=== PATIENT | male | born 1930 | race Caucasian/White ===

== ENCOUNTER 2016-06-16 14:31 | Inpatient (IN) | payer MEDICARE, OTHER ==
[~2016-06-16] VITALS: Ht 172.7 cm; Wt 78.2 kg
[~2016-06-16 14:31] MED LIST: ACET325T14 PO; ALBU18HF INH; ALBU8.5H3 INH; APIX5TAB PO; CEFU500T50 PO; CHOL10003 PO; DOXY100C2 PO; GUAI1CAP19 PO; HYDR-3241 PO; HYDR1TAB14 PO; IRON PO; MECL12.52 PO; METO25TA91 PO; OMEP-110 PO; TAMS0.4C2 PO; VITAMIN B12 PO
[2016-06-16] MEDS ORDERED: AMIO200T42 PO (15:06)
[2016-06-16] MEDS ORDERED: SODIUM CHLORIDE FLUSH 10ML SYR IVF ONE (15:30)
[2016-06-16] MEDS ORDERED: ALBUTEROL/IPRATROPIUM 2.5MG/0.5MG, 3 ML NPPB ONE (15:30)
[2016-06-16] MEDS ORDERED: ALBUTEROL/IPRATROPIUM 2.5MG/0.5MG, 3 ML ONE (15:36)
[2016-06-16 15:44] LABS: BLOOD UREA NITROGEN 15 mg/dL (7-18)
[2016-06-16 15:49] LABS: IS PT STATUS REG ER OR PRE ER? YES
[2016-06-16] MEDS ORDERED: OMNIPAQUE 350 MG/ML, 100ML BOTTLE ONE (17:38)
[2016-06-16] MEDS ORDERED: CEFTRIAXONE PMX 1GM/50ML 50 ML ONE (18:04)
[2016-06-16] MEDS ORDERED: CEFTRIAXONE PMX 1GM/50ML 50 ML IVPB ONE (18:30)
[2016-06-16] MEDS ORDERED: AZITHROMYCIN 500 MG in SODIUM CHLORIDE 0.9% 250 ML IV ONE (18:30)
[2016-06-16] MEDS ORDERED: SODIUM CHLORIDE FLUSH 10ML SYR IVF PRN (19:00)
[2016-06-16] MEDS ORDERED: SODIUM CHLORIDE 0.9% 1,000 ML IV SCH (19:18)
[2016-06-16] MEDS ORDERED: GUAIFENESIN/DM 200-20MG, 10ML UDC PO PRN (19:30)
[2016-06-16] MEDS ORDERED: DOCUSATE 100 MG CAPSULE PO PRN (19:30)
[2016-06-16] MEDS ORDERED: ONDANSETRON 2MG/ML, 2ML IVP PRN (19:30)
[2016-06-16] MEDS ORDERED: BISACODYL 10 MG SUPP PR PRN (19:30)
[2016-06-16] MEDS ORDERED: ACETAMINOPHEN 325 MG TABLET PO PRN (19:30)
[2016-06-16] MEDS ORDERED: HYDROcodone/APAP 5/325 TABLET PO PRN (19:30)
[2016-06-16] MEDS ORDERED: CEFTRIAXONE PMX 1GM/50ML 50 ML IV SCH (19:30)
[2016-06-16] MEDS ORDERED: POLYETHYLENE GLYCOL 17 GM PACKET PO PRN (19:30)
[2016-06-16 20:04] LABS: IS PT STATUS REG ER OR PRE ER? YES
[2016-06-16] MEDS ORDERED: TAMSULOSIN 0.4 MG CAP.ER.24H PO SCH (21:00)
[2016-06-16 21:20] VITALS: BP 164/78
[2016-06-16] MEDS: DOXYCYCLINE 100 MG in DEXTROSE 5% 250 ML IV SCH (21:47)
[2016-06-16] MEDS: APIXABAN 5 MG TABLET PO SCH (23:03)
[2016-06-16] MEDS: LACTOBACILLUS CHEW TABLET PO SCH (23:04)
[2016-06-16] MEDS: POTASSIUM CHLORIDE 20 MEQ TAB.ER.PRT PO SCH (23:04)
[2016-06-16] MEDS: TAMSULOSIN 0.4 MG CAP.ER.24H PO SCH (23:58)
[2016-06-17 00:07] VITALS: BP 164/78
[2016-06-17 03:03] LABS: IS PT STATUS REG ER OR PRE ER? NO
[2016-06-17 03:06] LABS: BLOOD UREA NITROGEN 13 mg/dL (7-18)
[2016-06-17 03:09] LABS: ASPARTATE AMINO TRANSFERASE 11 U/L (15-37)
[2016-06-17 03:55] VITALS: BP 157/71
[2016-06-17] MEDS: POTASSIUM CHLORIDE 20 MEQ TAB.ER.PRT PO SCH (04:06)
[2016-06-17 07:50] VITALS: BP 160/76
[2016-06-17] MEDS: AMIODARONE 200 MG TABLET PO SCH (08:43)
[2016-06-17] MEDS: LACTOBACILLUS CHEW TABLET PO SCH ×3 (08:43→22:41)
[2016-06-17] MEDS: APIXABAN 5 MG TABLET PO SCH ×2 (08:43→22:41)
[2016-06-17] MEDS: DOXYCYCLINE 100 MG in DEXTROSE 5% 250 ML IV SCH ×2 (11:19→22:42)
[2016-06-17 12:39] VITALS: BP 157/78
[2016-06-17] MEDS ORDERED: CEFTRIAXONE PMX 1GM/50ML 50 ML IV SCH (18:00)
[2016-06-17] MEDS ORDERED: CEFTRIAXONE PMX 1GM/50ML 50 ML IVPB ONE (18:00)
[2016-06-17] MEDS: TAMSULOSIN 0.4 MG CAP.ER.24H PO SCH (18:36)
[2016-06-17 20:50] VITALS: BP 147/69
[2016-06-18] MEDS ORDERED: ZOLPIDEM 5MG TABLET PO ONE (01:30)
[2016-06-18 02:18] VITALS: BP 175/84
[2016-06-18 05:28] LABS: BLOOD UREA NITROGEN 8 mg/dL (7-18)
[2016-06-18 07:39] VITALS: BP 127/76
[2016-06-18] MEDS: AMIODARONE 200 MG TABLET PO SCH (09:35)
[2016-06-18] MEDS: APIXABAN 5 MG TABLET PO SCH ×2 (09:36→20:50)
[2016-06-18] MEDS: LACTOBACILLUS CHEW TABLET PO SCH ×3 (09:37→20:50)
[2016-06-18] MEDS: DOXYCYCLINE 100 MG in DEXTROSE 5% 250 ML IV SCH ×2 (11:57→23:33)
[2016-06-18 12:53] VITALS: BP 152/81
[2016-06-18] MEDS: TAMSULOSIN 0.4 MG CAP.ER.24H PO SCH (18:36)
[2016-06-18] MEDS: CEFTRIAXONE PMX 1GM/50ML 50 ML IV SCH (18:36)
[2016-06-18 18:45] VITALS: BP 162/82
[2016-06-19 01:26] VITALS: BP 157/75
[2016-06-19] MEDS: CEFTRIAXONE PMX 1GM/50ML 50 ML IV SCH (05:06)
[2016-06-19 06:52] VITALS: BP 152/76
[2016-06-19] MEDS ORDERED: CEFD300C37 PO (09:32)
[2016-06-19] MEDS ORDERED: DOXY100C2 PO (09:32)
[2016-06-19] MEDS: AMIODARONE 200 MG TABLET PO SCH (09:37)
[2016-06-19] MEDS: LACTOBACILLUS CHEW TABLET PO SCH (09:37)
[2016-06-19] MEDS: APIXABAN 5 MG TABLET PO SCH (09:37)
== END 2016-06-19 11:00 | disposition home or self-care (01) | DRG 193 ==
LOC: ED 16:37 → EDIP 18:32 → SUATTDRO 18:55 → 4EST 21:11 → DCLOUNGE 06-19 10:50
PROVIDERS: ADMIT Internal Medicine
DX: J18.9 Pneumonia, unspecified organism (principal); E43 Unspecified severe protein-calorie malnutrition; J96.01 Acute respiratory failure with hypoxia; M48.56XA Collapsed vertebra, not elsewhere classified, lumbar region, initial encounter for fracture; D68.59 Other primary thrombophilia; D50.9 Iron deficiency anemia, unspecified; E87.6 Hypokalemia; G89.29 Other chronic pain; H91.90 Unspecified hearing loss, unspecified ear; I48.2 Chronic atrial fibrillation; K21.9 Gastro-esophageal reflux disease without esophagitis; N40.0 Benign prostatic hyperplasia without lower urinary tract symptoms; Z80.0 Family history of malignant neoplasm of digestive organs; Z82.0 Family history of epilepsy and other diseases of the nervous system; Z82.3 Family history of stroke; Z85.828 Personal history of other malignant neoplasm of skin; Z87.891 Personal history of nicotine dependence; Z95.0 Presence of cardiac pacemaker; Z79.01 Long term (current) use of anticoagulants; Z88.7 Allergy status to serum and vaccine; Z91.018 Allergy to other foods; Z60.2 Problems related to living alone
CPT/HCPCS: 36415; 71010; 71275; 80048; 80053; 82040; 83735; 83880; 84484; 85025; 85610; 85730; 87040; 87070; 87205; 87324; 93005; 94640; 96365; 96366; J0456; J0696; J7060; J7620; Q9967; J7030; J7050

== ENCOUNTER → 2016-07-06 | Outpatient (CLI) | payer MEDICARE, OTHER ==
[~2016-07-06] MED LIST changes: +AMIO200T42 PO; +CEFD300C37 PO
== END | disposition home or self-care (01) ==
LOC: CFH 12:56
PROVIDERS: ATTEND Internal Medicine Cardiovascular Disease
DX: J18.9 Pneumonia, unspecified organism (principal)
CPT/HCPCS: 71020

== ENCOUNTER → 2017-06-05 | Outpatient (CLI) | payer MEDICARE, OTHER ==
[~2017-06-05] MED LIST changes: -ALBU8.5H3 INH; +ALBU8.5H8 INH; +SULF1TAB24 PO
[2017-06-05 13:07] LABS: CHLORIDE 107 mmol/L (98-107)
[2017-06-05 13:14] LABS: ALANINE AMINOTRANSFERASE 23 U/L (12-78); ALBUMIN 2.9 g/dL (3.4-5.0); ALKALINE PHOSPHATASE 57 U/L (45-117); ANION GAP 9 mmol/L (5-15); BILIRUBIN,TOTAL 0.6 mg/dL (0.2-1.0); CALCIUM 8.2 mg/dL (8.5-10.1); CHOL/HDL RATIO 2.1; CHOLESTEROL, TOTAL 179 mg/dL (140-239); CREATININE 0.79 mg/dL (0.7-1.3); HDL CHOL % 47 % (26-37); HDL CHOLESTEROL (DIRECT) 85 mg/dL (40-60); LDL CHOLESTEROL,CALCULATED 80 mg/dL (54-169); LDL/HDL RATIO 0.9 (0.5-3.0); TOTAL PROTEIN 5.8 g/dL (6.4-8.2); TRIGLYCERIDES 70 mg/dL (50-200); VLDL CHOLESTEROL 14 mg/dL (0-25)
== END | disposition home or self-care (01) ==
LOC: CFH 08:23
PROVIDERS: ATTEND Internal Medicine Cardiovascular Disease
DX: R06.02 Shortness of breath (principal); E78.2 Mixed hyperlipidemia; I25.10 Atherosclerotic heart disease of native coronary artery without angina pectoris; I48.91 Unspecified atrial fibrillation; I73.9 Peripheral vascular disease, unspecified; R60.9 Edema, unspecified; Z95.0 Presence of cardiac pacemaker
CPT/HCPCS: 36415; 71046; 80053; 80061

== ENCOUNTER 2017-07-13 15:45 | Inpatient (IN) | payer MEDICARE, OTHER ==
[~2017-07-13] VITALS: Ht 172.7 cm; Wt 83.8 kg
[2017-07-13] MEDS ORDERED: SODIUM CHLORIDE FLUSH 10ML SYR IVF ONE (16:30)
[2017-07-13] MEDS ORDERED: SODIUM CHLORIDE 0.9% 1,000ML IVBOLUS ONE (16:30)
[2017-07-13] MEDS ORDERED: ONDANSETRON 2MG/ML, 2ML IVPush ONE (16:30)
[2017-07-13 16:55] LABS: BASOPHILS # (AUTO) 0.02 x10^3/uL (0-0.1); BASOPHILS % (AUTO) 0 % (0-1); EOSINOPHILS # (AUTO) 0.05 x10^3/uL (0-0.4); EOSINOPHILS % (AUTO) 1 % (1-7); LYMPHOCYTES # (AUTO) 1.83 x10^3/uL (1-3.4); LYMPHOCYTES % (AUTO) 27 % (22-44); MD NO; MEAN CORPUSCULAR HEMOGLOBIN 31.4 pg (27.5-34.5); MEAN CORPUSCULAR HGB CONC 33.2 g/dL (33.2-36.2); MEAN CORPUSCULAR VOLUME 94.4 fL (81-97); MEAN PLATELET VOLUME 8.2 fL (7.4-10.4); MONOCYTES # (AUTO) 0.63 x10^3/uL (0.2-0.8); MONOCYTES % (AUTO) 9 % (2-9); NEUTROPHILS # (AUTO) 4.39 x10^3/uL (1.8-6.8); NEUTROPHILS % (AUTO) 63 % (42-75); PLATELET COUNT 220 x10^3/uL (130-400); RED BLOOD COUNT 4.97 x10^6/uL (4.38-5.82); RED CELL DISTRIBUTION WIDTH 15.2 % (9.4-14.8)
[2017-07-13 17:05] LABS: ALBUMIN 3.3 g/dL (3.4-5.0); ANION GAP 6 mmol/L (5-15); CALCIUM 8.5 mg/dL (8.5-10.1); CHLORIDE 107 mmol/L (98-107)
[2017-07-13] MEDS ORDERED: ONDANSETRON 2MG/ML, 2ML ONE (17:05)
[2017-07-13] MEDS ORDERED: HYDROmorphone 2 MG/ML, 1ML ONE ×2 (17:06→18:12)
[2017-07-13 17:08] LABS: ALANINE AMINOTRANSFERASE 23 U/L (12-78); ALKALINE PHOSPHATASE 71 U/L (45-117); BILIRUBIN,TOTAL 0.6 mg/dL (0.2-1.0); CREATININE 0.82 mg/dL (0.7-1.3); TOTAL PROTEIN 6.7 g/dL (6.4-8.2)
[2017-07-13] MEDS: HYDROmorphone 1 MG/ML, 1ML IVPush PRN ×2 (17:28→20:38)
[2017-07-13] MEDS ORDERED: OMNIPAQUE 350 MG/ML, 100ML BOTTLE ONE (17:54)
[2017-07-13] MEDS ORDERED: methylPREDNISolone SOD SUCC 125 MG/2 ML ONE (19:58)
[2017-07-13] MEDS ORDERED: methylPREDNISolone SOD SUCC 125 MG/2 ML IVPush ONE (20:00)
[2017-07-13] MEDS ORDERED: hydrALAzine 20 MG/ML, 1ML IVPush PRN (20:30)
[2017-07-13] MEDS ORDERED: BISACODYL 10 MG SUPP PR PRN (20:30)
[2017-07-13] MEDS ORDERED: ACETAMINOPHEN 325 MG TABLET PO PRN (20:30)
[2017-07-13] MEDS ORDERED: DOCUSATE 100 MG CAPSULE PO PRN (20:30)
[2017-07-13] MEDS ORDERED: ONDANSETRON 2MG/ML, 2ML IVPush PRN (20:30)
[2017-07-13] MEDS ORDERED: BACLOFEN 10 MG TABLET PO PRN (20:30)
[2017-07-13] MEDS ORDERED: POLYETHYLENE GLYCOL 17 GM PACKET PO PRN (20:30)
[2017-07-13 21:49] VITALS: BP 173/90
[2017-07-13] MEDS: TAMSULOSIN 0.4 MG CAP.ER.24H PO SCH (21:59)
[2017-07-13] MEDS: SODIUM CHLORIDE FLUSH 10ML SYR IVF SCH (21:59)
[2017-07-13] MEDS: APIXABAN 5 MG TABLET PO SCH (21:59)
[2017-07-13] MEDS: morphine SULFATE 10 MG/ML, 1ML IVPush PRN (23:15)
[2017-07-13 23:22] VITALS: BP 136/71
[2017-07-14 02:23] VITALS: BP 151/71
[2017-07-14] MEDS: morphine SULFATE 10 MG/ML, 1ML IVPush PRN ×5 (02:33→21:18)
[2017-07-14 07:00] VITALS: BP 148/80
[2017-07-14] MEDS: SODIUM CHLORIDE FLUSH 10ML SYR IVF SCH ×2 (08:16→21:17)
[2017-07-14] MEDS: APIXABAN 5 MG TABLET PO SCH ×2 (08:19→21:18)
[2017-07-14] MEDS: AMIODARONE 200 MG TABLET PO SCH (08:19)
[2017-07-14] MEDS: FERROUS SULFATE 325 MG TABLET PO SCH (08:19)
[2017-07-14] MEDS: CYANOCOBALAMIN 1,000 MCG TABLET PO SCH (08:20)
[2017-07-14] MEDS: CHOLECALCIFEROL 1,000 UNIT TABLET PO SCH (08:20)
[2017-07-14] MEDS: TAMSULOSIN 0.4 MG CAP.ER.24H PO SCH ×2 (08:20→21:18)
[2017-07-14] MEDS: BACLOFEN 10 MG TABLET PO SCH ×3 (08:20→21:18)
[2017-07-14 12:24] VITALS: BP 124/69
[2017-07-14 19:51] VITALS: BP 136/66
[2017-07-14] MEDS: KETOROLAC 30 MG/1 ML IVPush PRN (21:18)
[2017-07-15] MEDS: morphine SULFATE 10 MG/ML, 1ML IVPush PRN ×2 (00:34→04:16)
[2017-07-15 02:14] VITALS: BP 148/84
[2017-07-15] MEDS: KETOROLAC 30 MG/1 ML IVPush PRN (04:16)
[2017-07-15 06:35] VITALS: BP 143/78
[2017-07-15] MEDS: FERROUS SULFATE 325 MG TABLET PO SCH (08:35)
[2017-07-15] MEDS: CYANOCOBALAMIN 1,000 MCG TABLET PO SCH (08:35)
[2017-07-15] MEDS: TAMSULOSIN 0.4 MG CAP.ER.24H PO SCH (08:36)
[2017-07-15] MEDS: APIXABAN 5 MG TABLET PO SCH (08:36)
[2017-07-15] MEDS: BACLOFEN 10 MG TABLET PO SCH (08:36)
[2017-07-15] MEDS: CHOLECALCIFEROL 1,000 UNIT TABLET PO SCH (08:36)
[2017-07-15] MEDS: AMIODARONE 200 MG TABLET PO SCH (08:36)
[2017-07-15] MEDS ORDERED: METH4TAB PO (09:00)
[2017-07-15] MEDS ORDERED: BACL-19 PO (09:03)
== END 2017-07-15 11:05 | disposition home or self-care (01) | DRG 552 ==
LOC: ED 17:55 → EDIP 20:09 → 3NW 20:58 → DCLOUNGE 07-15 11:01
PROVIDERS: ADMIT Family Medicine; ATTEND Hospitalist
DX: M54.16 Radiculopathy, lumbar region (principal); E44.0 Moderate protein-calorie malnutrition; D68.69 Other thrombophilia; R26.2 Difficulty in walking, not elsewhere classified; G89.29 Other chronic pain; I25.10 Atherosclerotic heart disease of native coronary artery without angina pectoris; K21.9 Gastro-esophageal reflux disease without esophagitis; M54.40 Lumbago with sciatica, unspecified side; N40.0 Benign prostatic hyperplasia without lower urinary tract symptoms; R32 Unspecified urinary incontinence; Z79.01 Long term (current) use of anticoagulants; Z82.49 Family history of ischemic heart disease and other diseases of the circulatory system; Z83.3 Family history of diabetes mellitus; Z85.828 Personal history of other malignant neoplasm of skin; Z87.891 Personal history of nicotine dependence; Z95.0 Presence of cardiac pacemaker; Z68.28 Body mass index [BMI] 28.0-28.9, adult; Z88.8 Allergy status to other drugs, medicaments and biological substances; Z91.018 Allergy to other foods; M54.9 Dorsalgia, unspecified; M48.061 Spinal stenosis, lumbar region without neurogenic claudication
CPT/HCPCS: 36415; 72133; 80053; 85025; 96374; 96375; 96376; J1170; J1885; J2405; J7509; Q9967; J2270; J2930; J7030

== ENCOUNTER 2017-07-24 01:28 | Inpatient (IN) | payer MEDICARE, OTHER ==
[~2017-07-24] VITALS: Ht 172.7 cm; Wt 80.2 kg
[~2017-07-24 01:28] MED LIST changes: +BACL-19 PO; +METH4TAB PO
[2017-07-24] MEDS ORDERED: MORPHINE SULFATE 4 MG/ML, 1ML IVPush PRN (02:00)
[2017-07-24] MEDS ORDERED: SODIUM CHLORIDE FLUSH 10ML SYR IVF ONE (02:00)
[2017-07-24] MEDS ORDERED: ASPIRIN 81 MG TABLET CHEW PO ONE (02:00)
[2017-07-24] MEDS ORDERED: ASPIRIN 81 MG TABLET CHEW ONE (02:01)
[2017-07-24] MEDS ORDERED: MORPHINE SULFATE 4 MG/ML, 1ML ONE ×2 (02:01→02:27)
[2017-07-24] MEDS ORDERED: GABA300C10 PO (02:07)
[2017-07-24 02:09] LABS: BASOPHILS # (AUTO) 0.03 x10^3/uL (0-0.1); BASOPHILS % (AUTO) 0 % (0-1); EOSINOPHILS # (AUTO) 0.05 x10^3/uL (0-0.4); EOSINOPHILS % (AUTO) 1 % (1-7); LYMPHOCYTES # (AUTO) 2.04 x10^3/uL (1-3.4); LYMPHOCYTES % (AUTO) 27 % (22-44); MD NO; MEAN CORPUSCULAR HEMOGLOBIN 31.5 pg (27.5-34.5); MEAN CORPUSCULAR VOLUME 95.5 fL (81-97); MONOCYTES # (AUTO) 0.78 x10^3/uL (0.2-0.8); MONOCYTES % (AUTO) 10 % (2-9); NEUTROPHILS # (AUTO) 4.78 x10^3/uL (1.8-6.8); NEUTROPHILS % (AUTO) 62 % (42-75); PLATELET COUNT 225 x10^3/uL (130-400); RED BLOOD COUNT 4.24 x10^6/uL (4.38-5.82); RED CELL DISTRIBUTION WIDTH 14.5 % (9.4-14.8)
[2017-07-24 02:17] LABS: INTERNATIONAL NORMALIZED RATIO 0.97 (0.93-1.1)
[2017-07-24 02:21] LABS: ALANINE AMINOTRANSFERASE 22 U/L (12-78); ALBUMIN 2.9 g/dL (3.4-5.0); ANION GAP 8 mmol/L (5-15); CALCIUM 8.1 mg/dL (8.5-10.1); CHLORIDE 106 mmol/L (98-107)
[2017-07-24 02:25] LABS: ALKALINE PHOSPHATASE 67 U/L (45-117); BILIRUBIN,TOTAL 0.2 mg/dL (0.2-1.0); TOTAL PROTEIN 6.1 g/dL (6.4-8.2); TROPONIN I < 0.015 ng/mL (0.000-0.045)
[2017-07-24 05:27] VITALS: BP 147/71
[2017-07-24] MEDS ORDERED: NITROGLYCERIN 0.4 MG BOTTLE (25 TABS) SL PRN (06:00)
[2017-07-24] MEDS ORDERED: NITROGLYCERIN 0.4 MG/SPRAY SL PRN (06:00)
[2017-07-24 06:10] VITALS: BP 101/58
[2017-07-24] MEDS ORDERED: SODIUM CHLORIDE 0.9% 1,000 ML IV SCH (06:20)
[2017-07-24] MEDS ORDERED: DOCUSATE 100 MG CAPSULE PO PRN (06:30)
[2017-07-24] MEDS ORDERED: BISACODYL 10 MG SUPP PR PRN (06:30)
[2017-07-24] MEDS ORDERED: ONDANSETRON 2MG/ML, 2ML IVPush PRN (06:30)
[2017-07-24] MEDS ORDERED: ACETAMINOPHEN 325 MG TABLET PO PRN (06:30)
[2017-07-24] MEDS ORDERED: hydrALAzine 20 MG/ML, 1ML IVPush PRN (06:30)
[2017-07-24] MEDS ORDERED: morphine SULFATE 10 MG/ML, 1ML IVPush PRN (06:30)
[2017-07-24] MEDS ORDERED: ONDANSETRON ODT 4 MG PO PRN (06:30)
[2017-07-24] MEDS ORDERED: POLYETHYLENE GLYCOL 17 GM PACKET PO PRN (06:30)
[2017-07-24] MEDS ORDERED: BACLOFEN 10 MG TABLET PO PRN (07:00)
[2017-07-24 07:46] LABS: FREE T4 (FREE THYROXINE) 1.62 ng/dL (0.76-1.46); THYROID STIMULATING HORMONE 2.16 mIU/L (0.358-3.740)
[2017-07-24 08:32] LABS: HEMOGLOBIN A1C 5.4 % (4.2-6.3)
[2017-07-24 08:34] VITALS: BP 123/67
[2017-07-24] MEDS: TAMSULOSIN 0.4 MG CAP.ER.24H PO SCH ×3 (09:00→10:28)
[2017-07-24 09:16] LABS: TROPONIN I < 0.015 ng/mL (0.000-0.045)
[2017-07-24] MEDS: GABAPENTIN 300 MG CAPSULE PO SCH ×4 (09:49→20:50)
[2017-07-24] MEDS: OMEPRAZOLE 20 MG CAPSULE.DR PO SCH (09:49)
[2017-07-24] MEDS: AMIODARONE 200 MG TABLET PO SCH (09:49)
[2017-07-24] MEDS: FERROUS SULFATE 325 MG TABLET PO SCH (09:49)
[2017-07-24] MEDS: CHOLECALCIFEROL 1,000 UNIT TABLET PO SCH (09:50)
[2017-07-24] MEDS: CYANOCOBALAMIN 1,000 MCG TABLET PO SCH (09:50)
[2017-07-24] MEDS: APIXABAN 5 MG TABLET PO SCH ×2 (09:52→20:50)
[2017-07-24] MEDS: OXYcodone IR 5MG TABLET PO PRN (10:10)
[2017-07-24 10:14] VITALS: BP 134/78
[2017-07-24] MEDS ORDERED: REGADENOSON 0.4 MG/5 ML SYRINGE ONE (11:06)
[2017-07-24] MEDS ORDERED: KETOROLAC 30 MG/1 ML IVPush ONE (13:00)
[2017-07-24 13:14] VITALS: BP 91/62
[2017-07-24] MEDS: METHOCARBAMOL 500 MG TABLET PO SCH ×3 (13:17→20:50)
[2017-07-24] MEDS ORDERED: OMNIPAQUE 350 MG/ML, 100ML BOTTLE ONE (14:08)
[2017-07-24 15:25] LABS: TROPONIN I < 0.015 ng/mL (0.000-0.045)
[2017-07-24] MEDS ORDERED: KETOROLAC 30 MG/1 ML IVPush PRN (15:30)
[2017-07-24 20:18] VITALS: BP 128/71
[2017-07-25 02:00] VITALS: BP 169/82
[2017-07-25] MEDS: OXYcodone IR 5MG TABLET PO PRN ×3 (02:38→10:36)
[2017-07-25] MEDS: METHOCARBAMOL 500 MG TABLET PO SCH ×2 (05:03→10:36)
[2017-07-25] MEDS: GABAPENTIN 300 MG CAPSULE PO SCH ×2 (05:03→10:36)
[2017-07-25 05:40] LABS: ALBUMIN 2.5 g/dL (3.4-5.0); ANION GAP 6 mmol/L (5-15); CALCIUM 7.7 mg/dL (8.5-10.1); CHLORIDE 108 mmol/L (98-107)
[2017-07-25 05:43] LABS: ALANINE AMINOTRANSFERASE 19 U/L (12-78); ALKALINE PHOSPHATASE 62 U/L (45-117); BILIRUBIN,TOTAL 0.4 mg/dL (0.2-1.0); CHOL/HDL RATIO 2.2; CHOLESTEROL, TOTAL 137 mg/dL (140-239); HDL CHOL % 45 % (26-37); HDL CHOLESTEROL (DIRECT) 61 mg/dL (40-60); LDL CHOLESTEROL,CALCULATED 62 mg/dL (54-169); TOTAL PROTEIN 5.4 g/dL (6.4-8.2); TRIGLYCERIDES 70 mg/dL (50-200); VLDL CHOLESTEROL 14 mg/dL (0-25)
[2017-07-25] MEDS ORDERED: ASPIRIN 81 MG TABLET EC PO SCH (06:00)
[2017-07-25 06:45] LABS: BASOPHILS # (AUTO) 0.02 x10^3/uL (0-0.1); BASOPHILS % (AUTO) 0 % (0-1); EOSINOPHILS # (AUTO) 0.07 x10^3/uL (0-0.4); EOSINOPHILS % (AUTO) 1 % (1-7); LYMPHOCYTES # (AUTO) 1.19 x10^3/uL (1-3.4); LYMPHOCYTES % (AUTO) 17 % (22-44); MD NO; MEAN CORPUSCULAR HEMOGLOBIN 31.1 pg (27.5-34.5); MEAN CORPUSCULAR HGB CONC 32.7 g/dL (33.2-36.2); MEAN PLATELET VOLUME 8.5 fL (7.4-10.4); MONOCYTES # (AUTO) 0.72 x10^3/uL (0.2-0.8); MONOCYTES % (AUTO) 10 % (2-9); NEUTROPHILS # (AUTO) 5.01 x10^3/uL (1.8-6.8); NEUTROPHILS % (AUTO) 72 % (42-75); PLATELET COUNT 200 x10^3/uL (130-400); RED BLOOD COUNT 4.02 x10^6/uL (4.38-5.82); RED CELL DISTRIBUTION WIDTH 14.5 % (9.4-14.8)
[2017-07-25 07:05] VITALS: BP 118/71
[2017-07-25] MEDS: OMEPRAZOLE 20 MG CAPSULE.DR PO SCH (08:42)
[2017-07-25] MEDS: CYANOCOBALAMIN 1,000 MCG TABLET PO SCH (08:42)
[2017-07-25] MEDS: APIXABAN 5 MG TABLET PO SCH (08:42)
[2017-07-25] MEDS: CHOLECALCIFEROL 1,000 UNIT TABLET PO SCH (08:42)
[2017-07-25] MEDS: TAMSULOSIN 0.4 MG CAP.ER.24H PO SCH (08:42)
[2017-07-25] MEDS: FERROUS SULFATE 325 MG TABLET PO SCH (08:42)
[2017-07-25] MEDS: AMIODARONE 200 MG TABLET PO SCH (08:42)
== END 2017-07-25 12:20 | disposition home or self-care (01) | DRG 205 ==
LOC: ED 01:57 → EDIP 04:48 → 5SO 05:29 → DCLOUNGE 07-25 12:13
PROVIDERS: ADMIT Internal Medicine; ATTEND Internal Medicine
DX: M94.0 Chondrocostal junction syndrome [Tietze] (principal); E43 Unspecified severe protein-calorie malnutrition; D68.59 Other primary thrombophilia; I48.2 Chronic atrial fibrillation; Z82.49 Family history of ischemic heart disease and other diseases of the circulatory system; M19.90 Unspecified osteoarthritis, unspecified site; N40.0 Benign prostatic hyperplasia without lower urinary tract symptoms; M54.9 Dorsalgia, unspecified; G89.29 Other chronic pain; K21.9 Gastro-esophageal reflux disease without esophagitis; M47.9 Spondylosis, unspecified; M54.10 Radiculopathy, site unspecified; Z79.82 Long term (current) use of aspirin; Z85.828 Personal history of other malignant neoplasm of skin; Z83.3 Family history of diabetes mellitus; Z87.891 Personal history of nicotine dependence; Z95.0 Presence of cardiac pacemaker; Z79.01 Long term (current) use of anticoagulants; Z87.01 Personal history of pneumonia (recurrent)
CPT/HCPCS: 36415; 71045; 71275; 78452; 80053; 80061; 83036; 83690; 83735; 83880; 84145; 84439; 84443; 84484; 85025; 85379; 85610; 85730; 93005; 93017; 93306; 96374; J1885; J2785; Q9967; A9502; C9898; J0360; J7030

== ENCOUNTER → 2017-12-31 | Outpatient (CLI) | payer MEDICARE, OTHER ==
[~2017-12-31] MED LIST changes: +GABA300C10 PO
[2017-12-31 13:38] LABS: BASOPHILS # (AUTO) 0.02 x10^3/uL (0-0.1); BASOPHILS % (AUTO) 0 % (0-1); EOSINOPHILS # (AUTO) 0.03 x10^3/uL (0-0.4); EOSINOPHILS % (AUTO) 1 % (1-7); LYMPHOCYTES # (AUTO) 1.68 x10^3/uL (1-3.4); LYMPHOCYTES % (AUTO) 28 % (22-44); MD NO; MEAN CORPUSCULAR HEMOGLOBIN 29.6 pg (27.5-34.5); MEAN CORPUSCULAR HGB CONC 33.1 g/dL (33.2-36.2); MEAN CORPUSCULAR VOLUME 89.4 fL (81-97); MEAN PLATELET VOLUME 8.7 fL (7.4-10.4); MONOCYTES % (AUTO) 8 % (2-9); NEUTROPHILS # (AUTO) 3.69 x10^3/uL (1.8-6.8); NEUTROPHILS % (AUTO) 62 % (42-75); PLATELET COUNT 190 x10^3/uL (130-400); RED BLOOD COUNT 4.36 x10^6/uL (4.38-5.82); RED CELL DISTRIBUTION WIDTH 17.6 % (9.4-14.8)
[2017-12-31 13:45] LABS: ALBUMIN 3.1 g/dL (3.4-5.0); ANION GAP 6 mmol/L (5-15); CALCIUM 8.2 mg/dL (8.5-10.1); CHLORIDE 109 mmol/L (98-107)
[2017-12-31 13:58] LABS: ALANINE AMINOTRANSFERASE 22 U/L (12-78); ALKALINE PHOSPHATASE 74 U/L (45-117); BILIRUBIN,TOTAL 0.3 mg/dL (0.2-1.0); CHOL/HDL RATIO 2.7; CHOLESTEROL, TOTAL 171 mg/dL (140-239); CREATININE 0.73 mg/dL (0.7-1.3); HDL CHOL % 37 % (26-37); HDL CHOLESTEROL (DIRECT) 64 mg/dL (40-60); LDL CHOLESTEROL,CALCULATED 90 mg/dL (54-169); LDL/HDL RATIO 1.4 (0.5-3.0); T4 (THYROXINE) 9.9 mcg/dL (4.5-12.1); TOTAL PROTEIN 6.1 g/dL (6.4-8.2); TRIGLYCERIDES 85 mg/dL (50-200); VLDL CHOLESTEROL 17 mg/dL (0-25)
== END | disposition home or self-care (01) ==
LOC: LAB 10:44
PROVIDERS: ATTEND Internal Medicine Cardiovascular Disease
DX: M48.54XG Collapsed vertebra, not elsewhere classified, thoracic region, subsequent encounter for fracture with delayed healing (principal); R06.02 Shortness of breath; I48.91 Unspecified atrial fibrillation; Z95.0 Presence of cardiac pacemaker; Z79.899 Other long term (current) drug therapy
CPT/HCPCS: 36415; 71046; 80053; 80061; 84436; 84443; 84481; 85025

== ENCOUNTER 2018-05-22 18:15 | Emergency (ER) | payer MEDICARE, OTHER ==
[~2018-05-22] VITALS: Ht 172.7 cm; Wt 82.8 kg
--- NOTE | 2018-05-22 18:25 | NUR ---
PT AMBULATORY TO XRAY.
--- NOTE | 2018-05-22 18:53 | NUR ---
ERP IN TO ASSESS
[2018-05-22] MEDS ORDERED: KETOROLAC 30 MG/1 ML ONE (19:24)
[2018-05-22] MEDS ORDERED: DIAZEPAM 5 MG TABLET ONE (19:25)
[2018-05-22] MEDS ORDERED: KETOROLAC 30 MG/1 ML IM ONE (19:30)
[2018-05-22] MEDS ORDERED: DIAZEPAM 5 MG TABLET PO ONE (19:30)
[2018-05-22 20:10] VITALS: BP 124/81
== END 2018-05-22 20:17 | disposition home or self-care (01) ==
LOC: ED 20:11
DX: S16.1XXA Strain of muscle, fascia and tendon at neck level, initial encounter (principal); I48.91 Unspecified atrial fibrillation; I25.10 Atherosclerotic heart disease of native coronary artery without angina pectoris; K21.9 Gastro-esophageal reflux disease without esophagitis; Z87.891 Personal history of nicotine dependence; Z95.0 Presence of cardiac pacemaker; Z85.9 Personal history of malignant neoplasm, unspecified; X58.XXXA Exposure to other specified factors, initial encounter; Y93.89 Activity, other specified; Y92.89 Other specified places as the place of occurrence of the external cause; Y99.8 Other external cause status
CPT/HCPCS: 72050; 96372; 99283; J1885

== ENCOUNTER → 2019-03-31 | Outpatient (CLI) | payer MEDICARE, OTHER ==
[~2019-03-31] MED LIST changes: -HYDR1TAB14 PO; +HYDR1TAB15 PO; -MECL12.52 PO; +MECL12.581 PO
[2019-03-31 13:10] LABS: ALBUMIN 2.9 g/dL (3.4-5.0); ANION GAP 3 mmol/L (5-15); CALCIUM 8.3 mg/dL (8.5-10.1); CHLORIDE 109 mmol/L (98-107)
[2019-03-31 13:21] LABS: ALANINE AMINOTRANSFERASE 20 U/L (12-78); ALKALINE PHOSPHATASE 64 U/L (45-117); BILIRUBIN,TOTAL 0.4 mg/dL (0.2-1.0); CHOL/HDL RATIO 2.3; CHOLESTEROL, TOTAL 158 mg/dL (140-239); CREATININE 0.82 mg/dL (0.7-1.3); HDL CHOL % 44 % (26-37); HDL CHOLESTEROL (DIRECT) 70 mg/dL (40-60); LDL CHOLESTEROL,CALCULATED 75 mg/dL (54-169); LDL/HDL RATIO 1.1 (0.5-3.0); MEAN CORPUSCULAR HEMOGLOBIN 31.5 pg (27.5-34.5); MEAN CORPUSCULAR HGB CONC 32.8 g/dL (33.2-36.2); MEAN PLATELET VOLUME 8.6 fL (7.4-10.4); PLATELET COUNT 186 x10^3/uL (130-400); RED BLOOD COUNT 4.31 x10^6/uL (4.38-5.82); RED CELL DISTRIBUTION WIDTH 14.3 % (9.4-14.8); T4 (THYROXINE) 9.7 mcg/dL (4.5-12.1); TOTAL PROTEIN 6.2 g/dL (6.4-8.2); TRIGLYCERIDES 66 mg/dL (50-200); VLDL CHOLESTEROL 13 mg/dL (0-25)
== END | disposition home or self-care (01) ==
LOC: CFH 09:27
PROVIDERS: ATTEND Internal Medicine Cardiovascular Disease
DX: I48.0 Paroxysmal atrial fibrillation (principal); I25.10 Atherosclerotic heart disease of native coronary artery without angina pectoris; I73.9 Peripheral vascular disease, unspecified; E78.2 Mixed hyperlipidemia; R60.9 Edema, unspecified; G47.30 Sleep apnea, unspecified; Z95.0 Presence of cardiac pacemaker
CPT/HCPCS: 36415; 71046; 80053; 80061; 84436; 84443; 84481; 85027

== ENCOUNTER → 2019-04-01 | Outpatient (CLI) | payer MEDICARE, OTHER | END | disposition home or self-care (01) | LOC: CVU 14:58 | PROVIDERS: ATTEND Internal Medicine Cardiovascular Disease | DX: I08.8 Other rheumatic multiple valve diseases (principal); I25.10 Atherosclerotic heart disease of native coronary artery without angina pectoris | CPT/HCPCS: 93306 ==

== ENCOUNTER → 2019-12-14 | Outpatient (CLI) | payer MEDICARE, OTHER | END | disposition home or self-care (01) | LOC: CFH 11:00 | PROVIDERS: ATTEND Internal Medicine Cardiovascular Disease | DX: J84.10 Pulmonary fibrosis, unspecified (principal); I48.91 Unspecified atrial fibrillation; E78.2 Mixed hyperlipidemia; I25.10 Atherosclerotic heart disease of native coronary artery without angina pectoris; G47.30 Sleep apnea, unspecified; I73.9 Peripheral vascular disease, unspecified; R60.9 Edema, unspecified; Z95.0 Presence of cardiac pacemaker | CPT/HCPCS: 71046 ==

== ENCOUNTER → 2020-09-05 | Outpatient (CLI) | payer MEDICARE, OTHER ==
[~2020-09-05] MED LIST changes: -MECL12.581 PO; +MECL12.590 PO; +SULF-23 PO; -SULF1TAB24 PO
== END | disposition home or self-care (01) ==
LOC: CFH 11:03
PROVIDERS: ATTEND Internal Medicine Cardiovascular Disease
DX: J94.1 Fibrothorax (principal); R91.8 Other nonspecific abnormal finding of lung field; E78.2 Mixed hyperlipidemia; G47.30 Sleep apnea, unspecified; I25.10 Atherosclerotic heart disease of native coronary artery without angina pectoris; I48.91 Unspecified atrial fibrillation; I73.9 Peripheral vascular disease, unspecified; R60.9 Edema, unspecified; Z95.0 Presence of cardiac pacemaker
CPT/HCPCS: 71046